=== PATIENT | female | born 2000 | race Caucasian/White ===

== ENCOUNTER → 2020-05-25 | Outpatient (CLI) | payer BC, OTHER ==
[~2020-05-25] MED LIST: PRD20T PO; RANI75TA57 PO
--- NOTE | 2020-05-25 13:42 | Diagnostic Imaging Report ---
PROCEDURE: Pelvic comp/transvaginal sonogram. TECHNIQUE: Complete transabdominal and transvaginal pelvic ultrasound was performed. In addition, limited pelvic Doppler was performed. INDICATION: Pelvic pain and dysmenorrhea. FINDINGS: Uterus is retroverted measuring 6.0 x 3.2 x 3.8 cm. Endometrium is 4 mm in thickness. No myometrial mass is detected. Right ovary measures 2.8 x 1.2 x 1.9 cm and the left left ovary measures 3.0 x 1.4 x 1.7 cm. There is blood flow to the ovaries. No adnexal mass is seen. There is a small amount of free fluid in the cul-de-sac. IMPRESSION: Unremarkable transabdominal and transvaginal pelvic ultrasound. Dictated by: Dictated on workstation # [id number]
== END ==
LOC: RAD 12:45
PROVIDERS: ATTEND Nurse Practitioner Family
DX: N94.6 Dysmenorrhea, unspecified (principal); F41.9 Anxiety disorder, unspecified
CPT/HCPCS: 76830; 76856

== ENCOUNTER 2020-06-14 23:52 | Emergency (ER) | payer BC ==
[~2020-06-14] VITALS: Ht 157.5 cm; Wt 47.6 kg
[2020-06-15] MEDS ORDERED: LACTATED RINGERS 1,000 ML IV ONE (01:00)
--- NOTE | 2020-06-15 01:00 | ED Chest Pain ---
General Chief Complaint: Chest Wall Stated Complaint: SOA/RIGHT SIDE PAIN Nursing Triage Note: AMBULATES TO ROOM #5 WITH C/O R CHEST WALL DISCOMFORT ET SOA. STATES DISCOMFORT BEGAN ON 06/13/20 ET INCREASES IN SEVERITY WHEN TAKING A DEEP BREATH. STATES "I CAN'T TAKE A FULL BREATH." DENIES INJURY. STATES PAIN TO R CLAVICLE ET RADIATES DISTALLY TO R DISTAL RIBS. STATES SHE TOOK 800MG IBUPROFEN AT 2300. MOTHER AT SIDE. Source: patient, family (mom) Exam Limitations: no limitations History of Present Illness Date Seen by Provider: Jun 15, 2020 Time Seen by Provider: 00:45 Initial Comments Patient is a very pleasant 19-year-old female with 1 day progressively worsening right sided chest pain up near her right shoulder just under the clavicle with deep inspiration or movement of her shoulder. She says it also hurts down under her right ribs when she takes a deep breath in. She has been coughing some but has no fevers or chills. She was doing clinicals for nursing school all week. She has had no abdominal surgeries or other significant medical history. She takes a combined oral contraceptive. She was having some fullness and swelling in her right arm and became worried she might have a DVT. She does not smoke or have a history or family history of DVTs or PEs. No history of gallbladder disease in her family either. She is known to Dr. Olmos and is up-to-date on vaccinations. Prior to coming into the ER her pain was 9 out of 10. She says she took 800 mg ibuprofen and about 15 minutes after she arrived her pain is down to about a 2 out of 10 presently. Allergies and Home Medications Allergies Coded Allergies: No Known Drug Allergies (Unverified Allergy, Mild, 11/10/08) Home Medications Prednisone 20 Mg Tab, 20 MG PO DAILY Prescribed by: IKE GOFF on 11/11/0847 Prednisone 20 Mg Tab, 20 MG PO UD 2 TABS QDAY X 3 DAYS, THE 1 TAB QDAY X 3 DAYS Prescribed by: TEENA ARROYO MD on 03/12/09 3348 Ranitidine Hcl 75 Mg Tablet, 75 MG PO DAILY Prescribed by: IKE GOFF on 11/11/0847 Patient Home Medication List Home Medication List Reviewed: Yes Review of Systems Review of Systems Constitutional: No chills, No diaphoresis EENTM: No Blurred Vision, No Double Vision Respiratory: Denies Cough, Denies Shortness of Air Cardiovascular: Denies Chest Pain, Denies Lightheadedness Gastrointestinal: Denies Abdominal Pain, Denies Constipated, Denies Diarrhea, Denies Nausea Genitourinary: Denies Burning, Denies Discharge Musculoskeletal: No back pain, No joint pain All Other Systems Reviewed Negative Unless Noted: Yes Past Euajfea-Cnvreb-Obytze Hx Patient Social History Alcohol Use: Denies Use Drug of Choice: Denies Smoking Status: Never a Smoker 2nd Hand Smoke Exposure: No Recent Infectious Disease Expo: No Recent Hopitalizations: No Ebola Symptoms: Denies Symptoms Listed Seasonal Allergies Seasonal Allergies: No Past Medical History Surgeries: No Respiratory: No Cardiac: No Neurological: No Genitourinary: No Gastrointestinal: No Musculoskeletal: No Endocrine: No HEENT: No Cancer: No Psychosocial: No Integumentary: No Blood Disorders: No Physical Exam Vital Signs Vital Signs - First Documented 06/15/20 00:00 Temp 36.1 Pulse 94 Resp 18 B/P (MAP) 115/76 Pulse Ox 98 O2 Delivery Room Air Capillary Refill : Less Than 3 Seconds Height, Weight, BMI Height: '" Weight: lbs. oz. kg; 19.00 BMI Method: General Appearance: WD/WN, Mild Distress HEENT: PERRL/EOMI, Pharynx Normal, Moist Mucous Membranes Neck: Full Range of Motion, Normal Inspection, Non Tender Respiratory: Chest Non Tender, Lungs Clear, Normal Breath Sounds, No Accessory Muscle Use, No Respiratory Distress Cardiovascular: Regular Rate, Rhythm, No Edema, Normal Peripheral Pulses Gastrointestinal: Normal Bowel Sounds, No Organomegaly, Soft, Tenderness (Right upper quadrant with positive Herring sign) Extremity: Normal Capillary Refill, Normal Inspection (Right shoulder without crepitus full range of motion nontender to palpation including the AC joint and clavicle), Non Tender, No Pedal Edema Neurologic/Psychiatric: Alert, Oriented x3 Skin: Normal Color, Warm/Dry Progress/Results/Core Measures Results/Orders Lab Results Laboratory Tests Test 06/15/20 00:41 06/15/20 00:55 Range/Units D-Dimer 2.57 H 0.00-0.49 UG/ML White Blood Count 8.5 4.3-11.0 10^3/uL Red Blood Count 4.06 3.80-5.11 10^6/uL Hemoglobin 12.0 11.5-16.0 g/dL Hematocrit 36 35-52 % Mean Corpuscular Volume 89 80-99 fL Mean Corpuscular Hemoglobin 30 25-34 pg Mean Corpuscular Hemoglobin Concent 33 32-36 g/dL Red Cell Distribution Width 11.7 10.0-14.5 % Platelet Count 356 130-400 10^3/uL Mean Platelet Volume 9.6 9.0-12.2 fL Immature Granulocyte % (Auto) 0 % Neutrophils (%) (Auto) 56 42-75 % Lymphocytes (%) (Auto) 36 12-44 % Monocytes (%) (Auto) 6 0-12 % Eosinophils (%) (Auto) 2 0-10 % Basophils (%) (Auto) 0 0-10 % Neutrophils # (Auto) 4.7 1.8-7.8 10^3/uL Lymphocytes # (Auto) 3.1 1.0-4.0 10^3/uL Monocytes # (Auto) 0.5 0.0-1.0 10^3/uL Eosinophils # (Auto) 0.1 0.0-0.3 10^3/uL Basophils # (Auto) 0.0 0.0-0.1 10^3/uL Immature Granulocyte # (Auto) 0.0 0.0-0.1 10^3/uL Sodium Level 140 135-145 MMOL/L Potassium Level 3.6 3.6-5.0 MMOL/L Chloride Level 103 98-107 MMOL/L Carbon Dioxide Level 24 21-32 MMOL/L Anion Gap 13 5-14 MMOL/L Blood Urea Nitrogen 17 7-18 MG/DL Creatinine 1.02 0.60-1.30 MG/DL Estimat Glomerular Filtration Rate > 60 BUN/Creatinine Ratio 17 Glucose Level 100 70-105 MG/DL Calcium Level 8.9 8.5-10.1 MG/DL Corrected Calcium 9.0 8.5-10.1 MG/DL Total Bilirubin 0.2 0.1-1.0 MG/DL Aspartate Amino Transf (AST/SGOT) 15 5-34 U/L Alanine Aminotransferase (ALT/SGPT) 16 0-55 U/L Alkaline Phosphatase 54 40-136 U/L C-Reactive Protein High Sensitivity 2.77 H 0.00-0.50 MG/DL Total Protein 7.2 6.4-8.2 GM/DL Albumin 3.9 3.2-4.5 GM/DL Lipase 27 8-78 U/L My Orders Orders - SHAI HUDSON Ed Iv/Invasive Line Start (06/15/20 00:50) Lactated Ringers (Lr 1000 Ml Iv Solution (06/15/20 01:00) Fibrin Degradation Products (06/15/20 00:50) Cbc With Automated Diff (06/15/20 00:50) Comprehensive Metabolic Panel (06/15/20 00:50) Hs C Reactive Protein (06/15/20 00:50) Lipase (06/15/20 00:50) Chest Pa/Lat (2 View) (06/15/20 00:50) Ct Angio Chest W (06/15/20 01:49) Iohexol Injection (Omnipaque 350 Mg/Ml 1 (06/15/20 02:30) Received Contrast (Hold Metformin- Contr (06/15/20 02:30) Sodium Chloride Flush (Catheter Flush Sy (06/15/20 02:30) Ns (Ivpb) (Sodium Chloride 0.9% Ivpb Bag (06/15/20 02:30) Medications Given in ED Current Medications Medications Dose Ordered Sig/Steph Route Start Time Stop Time Status Last Admin Dose Admin Iohexol 100 ml ONCE ONCE IV 06/15/20 02:30 06/15/20 02:31 DC 06/15/20 02:28 75 ML Lactated Ringer's 1,000 ml @ 0 mls/hr Q0M ONCE IV 06/15/20 01:00 06/15/20 01:01 DC 06/15/20 00:59 0 MLS/HR Sodium Chloride 10 ml NEEDED PRN IV 06/15/20 02:30 06/15/20 02:29 10 ML Sodium Chloride 100 ml ONCE ONCE IV 06/15/20 02:30 06/15/20 02:31 DC 06/15/20 02:29 64 ML Vital Signs/I&O 06/15/20 00:00 Temp 36.1 Pulse 94 Resp 18 B/P (MAP) 115/76 Pulse Ox 98 O2 Delivery Room Air Progress Progress Note #1: Time: 00:59 Progress Note Differential includes pleurisy, gallbladder disease. Much less likely to be a DVT but will get a D-dimer see if we can rule it out. Wells score for pulmonary embolism: 3.0 points. Moderate risk group: 16.2% chance of PE in an ED population. PERC Rule: 1 criteria; If any criteria are positive, the PERC rule cannot be used to rule out PE in this patient. Progress Note #2: Time: 02:00 Progress Note Patient is nontachycardic pain is okay however her D-dimer failed to rule out clot. A CT angiogram of the chest will rule out significant PE. She can then follow-up with Dr. Zacarias for further outpatient work-up of her gallbladder. We discussed the risks, benefits and alternatives to imaging tonight and using a clinically supported decision-making process she and her mother agreed to a CT angiogram. Diagnostic Imaging Diagonstic Imaging: Xray Plain Films/CT/US/NM/MRI: chest (2v) Comments No acute cardiopulmonary process on a 2 view chest x-ray Reviewed: Reviewed by Me Diagonstic Imaging: CT Plain Films/CT/US/NM/MRI: chest Comments Normal CTA chest. Incidental note of hepatosplenomegaly Reviewed: Reviewed by Me Departure Impression Primary Impression: Pleuritic chest pain Disposition: HOME, SELF-CARE Condition: Stable Departure-Patient Inst. Decision time for Depature: 02:53 Referrals: RIO OLMOS MD (PCP/Family) Primary Care Physician Patient Instructions: Pleuritic Chest Pain (DC) Add. Discharge Instructions: Ibuprofen 800 mg every 8 hours as necessary for pain or naproxen 2 tablets twice a day as necessary for pain. Tylenol 1000 mg every 8 hours as necessary for pain. Call Dr. Olmos in follow-up for further appropriate evaluation in the clinic. Return to the ER if your symptoms are worsening or nonresponsive to Tylenol and ibuprofen. All discharge instructions reviewed with patient and/or family. Voiced understanding. Copy Copies To 1: RIO OLMOS MD, TITUS J Jun 15, 2020 01:00
[2020-06-15 01:07] LABS: BASOPHILS % (AUTO) 0 % (0-10); EOSINOPHILS # (AUTO) 0.1 10^3/uL (0.0-0.3); EOSINOPHILS % (AUTO) 2 % (0-10); HEMATOCRIT 36 % (35-52); LYMPHOCYTES # (AUTO) 3.1 10^3/uL (1.0-4.0); LYMPHOCYTES % (AUTO) 36 % (12-44); MEAN CORPUSCULAR HEMOGLOBIN 30 pg (25-34); MEAN CORPUSCULAR HGB CONC 33 g/dL (32-36); MEAN CORPUSCULAR VOLUME 89 fL (80-99); MEAN PLATELET VOLUME 9.6 fL (9.0-12.2); MONOCYTES # (AUTO) 0.5 10^3/uL (0.0-1.0); MONOCYTES % (AUTO) 6 % (0-12); NEUTROPHILS # (AUTO) 4.7 10^3/uL (1.8-7.8); NEUTROPHILS % (AUTO) 56 % (42-75); PLATELET COUNT 356 10^3/uL (130-400); WHITE BLOOD COUNT 8.5 10^3/uL (4.3-11.0)
[2020-06-15 01:19] LABS: ALBUMIN 3.9 GM/DL (3.2-4.5)
[2020-06-15 01:20] LABS: CHLORIDE 103 MMOL/L (98-107); POTASSIUM 3.6 MMOL/L (3.6-5.0); SODIUM 140 MMOL/L (135-145)
[2020-06-15 01:21] LABS: CALCIUM 8.9 MG/DL (8.5-10.1)
[2020-06-15 01:22] LABS: GLUCOSE 100 MG/DL (70-105); TOTAL PROTEIN 7.2 GM/DL (6.4-8.2)
[2020-06-15 01:23] LABS: CARBON DIOXIDE 24 MMOL/L (21-32)
[2020-06-15 01:24] LABS: BILIRUBIN,TOTAL 0.2 MG/DL (0.1-1.0)
[2020-06-15 01:25] LABS: ALKALINE PHOSPHATASE 54 U/L (40-136)
[2020-06-15 01:26] LABS: CREATININE SERUM 1.02 MG/DL (0.60-1.30); GFR ESTIMATED > 60
[2020-06-15 01:27] LABS: BUN/CREATININE RATIO 17
[2020-06-15 01:29] LABS: ALANINE AMINOTRANSFERASE 16 U/L (0-55); LIPASE 27 U/L (8-78)
[2020-06-15] MEDS ORDERED: CATHETER FLUSH 10 ML SYR IV PRN (02:30)
[2020-06-15] MEDS ORDERED: IOHEXOL 350 MG/ML 100 ML (OMNIPAQUE 350) VIAL IV ONE (02:30)
[2020-06-15] MEDS ORDERED: HOLD METFORMIN - RECEIVED CONTRAST 20 ML VIAL IV SCH (02:30)
[2020-06-15] MEDS ORDERED: NS 100 ML (IVPB) BAG IV ONE (02:30)
[2020-06-15 03:05] VITALS: BP 102/69
--- NOTE | 2020-06-15 05:40 | Diagnostic Imaging Report ---
EXAMINATION: PA and lateral chest at 1:06 PM INDICATION: Right-sided chest pain There are no prior studies available for comparison. COMPARISON: There are no prior exams available for comparison. FINDINGS: The heart size is within normal limits. The lungs are clear. The osseous structures, where visualized, are intact. IMPRESSION: 1. Negative for active disease. 2. Reportedly, CTA of the chest is pending for further study. Dictated by: Dictated on workstation # [id number]
--- NOTE | 2020-06-15 05:41 | Diagnostic Imaging Report ---
PROCEDURE: CT angiography of the chest with contrast. TECHNIQUE: Multiple contiguous axial images were obtained through the chest after uneventful bolus administration of intravenous contrast. 3D reconstructed CTA MIP acquisitions were also performed. Auto Exposure Controls were utilized during the CT exam to meet ALARA standards for radiation dose reduction. INDICATION: Right chest pain. There are no prior CTA chest examinations available for comparison. FINDINGS: The plain film examination of the chest performed prior to the study failed to show any sign of an acute cardiopulmonary abnormality. On this exam, the heart size is within normal limits. There is no defect within the pulmonary arteries to indicate a pulmonary embolus. The aorta is not abnormally dilated and there is no sign of dissection. There is no mediastinal or hilar adenopathy. The thyroid gland where visualized is unremarkable. The lungs are clear. There is no evidence for failure, pneumonia or for pleural effusion. There is no obvious breast mass. The sections through the upper abdomen shows the liver is mildly enlarged. The spleen is prominent but not enlarged. The bone windows show no sign of a fracture or destructive lesion. IMPRESSION: 1. There is no evidence for an acute cardiopulmonary abnormality. In particular, there is no sign of a pulmonary embolus. 2. The liver is mildly enlarged. Clinical follow-up is recommended. 3. I agree with [facility] interpretation of this exam. Dictated by: Dictated on workstation # [id number]
== END 2020-06-15 03:05 | disposition home or self-care (01) ==
LOC: EDUNIT# 23:52 → ER 23:54
DX: R07.81 Pleurodynia (principal); Z79.52 Long term (current) use of systemic steroids
CPT/HCPCS: 36415; 71046; 71275; 80053; 83690; 85025; 85379; 86141

== ENCOUNTER → 2020-06-23 | Outpatient (CLI) | payer BC ==
--- NOTE | 2020-06-23 15:11 | Diagnostic Imaging Report ---
PROCEDURE: US Gallbladder. TECHNIQUE: Multiple real-time grayscale images were obtained over the right upper quadrant in various projections. INDICATION: Right upper quadrant pain. Liver measures 15.3 cm in size. No discrete liver mass is detected. Portal vein is patent and shows normal direction of flow. Gallbladder is without stones or sludge. No wall thickening or biliary duct dilatation is seen. Pancreas unremarkable. Aorta is nonaneurysmal. IVC is patent. Right kidney is without calculi or hydronephrosis. There is no ascites. IMPRESSION: Unremarkable gallbladder ultrasound. Dictated by: Dictated on workstation # [id number]
== END ==
LOC: RAD 10:13
PROVIDERS: ATTEND Family Medicine
DX: R10.11 Right upper quadrant pain (principal)
CPT/HCPCS: 76705